=== PATIENT | female | born 1970 | race Caucasian/White ===

== ENCOUNTER 2017-06-27 16:56 | Emergency (ER) | payer OTHER ==
[~2017-06-27] VITALS: Ht 152.4 cm; Wt 60.0 kg
[2017-06-27 18:01] LABS: HEMATOCRIT 40.2 % (36.0-46.0); HEMOGLOBIN 13.6 G/DL (11.9-15.5); MCH 31.3 PG (29.0-34.0); MCHC 33.8 G/DL (30.0-36.0); MCV 92.4 FL (83-99); PLATELET COUNT 321 K/uL (156-360); RBC DIS.WIDTH-CV 11.5 % (11.8-14.6); RED BLOOD COUNT 4.35 M/uL (3.80-5.20); WHITE BLOOD COUNT 7.7 K/uL (4.1-10.2)
[2017-06-27 18:12] LABS: CHLORIDE 104 mEq/L (99-109); POTASSIUM 4.1 mEq/L (3.7-5.4); SODIUM 136 mEq/L (136-147)
[2017-06-27 18:13] LABS: GLUCOSE 110 mg/dL (70-99)
[2017-06-27 18:17] LABS: CREATININE 0.7 mg/dL (0.6-1.3); GFR ESTIMATE (CALCULATED) > 59 mL/min/
[2017-06-27 18:18] LABS: UREA NITROGEN (BUN) 22 mg/dL (9-23)
[2017-06-27] MEDS ORDERED: KEFLEX500 MG PO (20:58)
[2017-06-27 23:11] VITALS: BP 149/95
== END 2017-06-27 23:25 | disposition home or self-care (01) ==
LOC: EME 16:56
PROVIDERS: Physician Assistant
DX: R41.82 Altered mental status, unspecified (principal); J01.90 Acute sinusitis, unspecified; R47.01 Aphasia
CPT/HCPCS: 70450; 80048; 81003; 85027; 93005; 99281; 99285